=== PATIENT | male | born 1965 | race Caucasian/White ===

== ENCOUNTER 2017-04-20 19:07 | Inpatient (IN) | payer OTHER ==
[2017-04-20 21:43] VITALS: BMI 24.1
--- NOTE | 2017-04-20 22:18 | HP ---
COWS - Scale Resting Pulse: 0= ND 80 or Below Sweatin= Chills/Flushing Restless Observation: 5= Unable to Sit Still Pupil Size: 1= Pupils >than Normal Bone or Joint Aches: 4=Acute Joint/Muscle Pain Runny Nose/ Eye Tearin= None GI Upset > 30mins: 1= Stomach Cramp Tremor Observation: 2= Slight Tremor Visible Yawning Observation: 0= None Anxiety or Irritability: 2=Irritable/Anxious Goose Flesh Skin: 0=Smooth Skin COWS Score: 16 CIWA Score - CIWA Score Nausea/Vomitin-No Nausea/No Vomiting Muscle Tremors: 3 Anxiety: 3 Agitation: 4-Moderately Restless Paroxysmal Sweats: 3 Orientation: 0-Oriented Tacttile Disturbances: 0-None Auditory Disturbances: 0-None Visual Disturbances: 2-Mild Sensitivity Headache: 2-Mild CIWA-Ar Total Score: 17 Admission ROS S - HPI Chief Complaint: C/O WITHDRAWALS SX'S, OPIATE AND ALCOHOL DEPENDENCE SEEKING DETOX TXMENT. Allergies/Adverse Reactions: Allergies Allergy/AdvReac Type Severity Reaction Status Date / Time No Known Allergies Allergy Verified 10/14/15 16:43 History of Present Illness: 51 Y.O. MALE WITH ALCOHOLISM AND OPIATE DEPENDENCE ADMITTED FOR DETOX TXMENT. THIS IS CLIENTS FIRST TIME HERE. REPORTS NO RECENT DETOX/ REHAB. SELF REFERRED. REPORTS LONGEST CLEAN TIME 4 YEARS Exam Limitations: No Limitations - Ebola screening Have you traveled outside of the country in the last 21 days: No Have you had contact with anyone from an Ebola affected area: No Have you been sick,other than usual withdrawal symptoms: No Do you have a fever: No - Review of Systems Constitutional: Chills, Malaise, Night Sweats, Unintentional Wgt. Loss EENT: reports: Dental Problems (POOR DENTITION) Respiratory: reports: No Symptoms reported Cardiac: reports: No Symptoms Reported GI: reports: Abdominal cramping : reports: No Symptoms Reported Musculoskeletal: reports: Back Pain Integumentary: reports: No Symptoms Reported Neuro: reports: Headache, Tremors Endocrine: reports: Other (H/O DM) Hematology: reports: No Symptoms Reported Psychiatric: reports: Anxious, Depressed Other Systems: Reviewed and Negative Patient History - Patient Medical History Hx Anemia: No Hx Asthma: No Hx Chronic Obstructive Pulmonary Disease (COPD): No Hx Cancer: No Hx Cardiac Disorders: No Hx Congestive Heart Failure: No Hx Hypertension: No Hx Hypercholesterolemia: No Hx Pacemaker: No HX Cerebrovascular Accident: No Hx Seizures: No Hx Dementia: No Hx Diabetes: Yes (INSULIN) Hx Gastrointestinal Disorders: No Hx Liver Disease: No Hx Genitourinary Disorders: No Hx Sexually Transmitted Disorders: No Hx Renal Disease (ESRD): No Hx Thyroid Disease: No Hx Human Immunodeficiency Virus (HIV): No Hx Hepatitis C: No Hx Depression: No Hx Suicide Attempt: No Hx Bipolar Disorder: No Hx Schizophrenia: No Other Medical History: OA - Patient Surgical History Past Surgical History: No Hx Neurologic Surgery: No Hx Cataract Extraction: No Hx Cardiac Surgery: No Hx Lung Surgery: No Hx Breast Surgery: No Hx Breast Biopsy: No Hx Abdominal Surgery: No Hx Appendectomy: No Hx Cholecystectomy: No Hx Genitourinary Surgery: No Hx Section: No Hx Orthopedic Surgery: Yes (arthrotscopic sx on both knees) Anesthesia Reaction: No - PPD History Previous Implant?: Yes Documented Results: Negative w/o proof Implanted On Prior [facility] Admission?: No PPD to be Administered?: Yes - Smoking Cessation Smoking history: Current every day smoker Have you smoked in the past 12 months: Yes Aproximately how many cigarettes per day: 20 Cigars Per Day: 0 Hx Chewing Tobacco Use: No Initiated information on smoking cessation: Yes 'Breaking Loose' booklet given: 04/20/17 - Substance & Tx. History Hx Alcohol Use: Yes Hx Substance Use: Yes Substance Use Type: Alcohol, Heroin, Marijuana Hx Substance Use Treatment: No - Substances Abused HEROINE Route: Inhalation Frequency: Daily Amount used: 6 BAGS Age of first use: 48 Date of Last Use: 04/20/17 (3 BAGS) THC Route: Smoking Frequency: Daily Amount used: DIME Age of first use: 20 Date of Last Use: 04/19/17 BEER Route: Oral Frequency: Daily Amount used: 40 OZ Age of first use: 19 Date of Last Use: 04/19/17 Family Disease History - Family Disease History Family Disease History: Diabetes: Father Admission Physical Exam [facility] - Vital Signs Vital Signs: Vital Signs - 24 hr 04/20/17 21:40 Temperature 96.8 F L Pulse Rate 53 L Respiratory 18 Rate Blood Pressure 116/70 - Physical General Appearance: Yes: Appropriately Dressed, Tremorous, Anxious HEENTM: Yes: EOMI, Normocephalic, Pharynx Normal, Other (POOR DENTITION) Respiratory: Yes: Chest Non-Tender, No Respiratory Distress, No Accessory Muscle Use, Other (COARSE BREATH SOUNDS) Neck: Yes: No masses,lesions,Nodules, Supple, Trachea in good position Breast: Yes: Breast Exam Deferred Cardiology: Yes: Regular Rhythm, Regular Rate, S1, S2 Abdominal: Yes: Normal Bowel Sounds, Non Tender, Flat, Soft, Other (RESOLVING ECCHYMOSIS FROM INSULIN INJECTION NOTED TO ABD) Genitourinary: Yes: Within Normal Limits Back: Yes: Normal Inspection Musculoskeletal: Yes: full range of Motion, Gait Steady Extremities: Yes: Normal Capillary Refill, Normal Range of Motion, Non-Tender, Tremors Neurological: Yes: jumpbasting facing baster II-XII NML intact, Fully Oriented, Alert, Motor Strength 5/5 Integumentary: Yes: Normal Color, Dry, Warm Lymphatic: Yes: Within Normal Limits - Diagnostic (1) Alcohol dependence with uncomplicated withdrawal Current Visit: Yes Status: Chronic (2) Cannabis abuse Current Visit: Yes Status: Chronic (3) Nicotine abuse Current Visit: Yes Status: Chronic (4) Opioid dependence with withdrawal Current Visit: Yes Status: Chronic (5) Diabetes Current Visit: Yes Status: Chronic Qualifiers: Diabetes mellitus type: type 2 Cleared for Admission [facility] - Detox or Rehab [facility] Level of Care: Medically Managed Detox Regimen/Protocol: Methadone/Librium [facility] Breath Alcohol Content Breath Alcohol Content: 0 Urine Drug Screen - Results Drug Screen Negative: No Urine Drug Screen Results: THC-Marijuana, JOEL-Cocaine, OPI-Opiates
[2017-04-20] MEDS ORDERED: IBUPROFEN 400 MG TABLET (FP) PO PRN (22:35)
[2017-04-20] MEDS ORDERED: MAGNESIUM CITRATE 300 ML BOTTLE PO PRN (22:35)
[2017-04-20] MEDS ORDERED: MENTHOL/PHENOL 1 EACH UD MM PRN (22:35)
[2017-04-20] MEDS ORDERED: METHADONE HCL 10 MG TABLET (FOR DETOX USE ONLY) PO ONE ×2 (22:35→23:00)
[2017-04-20] MEDS ORDERED: ACETAMINOPHEN 325 MG TABLET (FP) PO PRN (22:35)
[2017-04-20] MEDS ORDERED: MAG HYDROX/AL HYDROX/SIMETH 30 ML UNIT-DOSE CUP PO PRN (22:35)
[2017-04-20] MEDS ORDERED: NICOTINE POLACRILEX 2 MG GUM BUC PRN (22:35)
[2017-04-20] MEDS ORDERED: guaiFENesin/D-METHORPHAN HB 10 ML UNIT-DOSE CUPS PO PRN (22:35)
[2017-04-20] MEDS ORDERED: P-EPHED 60MG/TRIPROLIDI 2.5MG TABLET PO PRN (22:35)
[2017-04-20] MEDS ORDERED: diphenhydrAMINE HCL 50 MG CAPSULE PO PRN (22:35)
[2017-04-20] MEDS ORDERED: LOPERAMIDE HCL 2 MG CAPSULE PO PRN (22:35)
[2017-04-20] MEDS ORDERED: MAGNESIUM HYDROX 2400MG/30ML ORAL SUSPENSION 30 ML CUP PO PRN (22:35)
[2017-04-20] MEDS ORDERED: chlordiazePOXIDE HCL 25 MG CAPSULE PO PRN (22:35)
[2017-04-20] MEDS: chlordiazePOXIDE HCL 25 MG CAPSULE PO SCH (23:51)
[2017-04-21 02:36] LABS: URINE APPEARANCE SLCLOUDY; URINE BILIRUBIN NEGATIVE (NEGATIVE); URINE COLOR AMBER; URINE GLUCOSE (UA) NEGATIVE (NEGATIVE); URINE KETONE TRACE (NEGATIVE); URINE LEUK ESTERASE NEGATIVE (NEGATIVE); URINE NITRITE NEGATIVE (NEGATIVE); URINE UROBILINOGEN NEGATIVE E.U./dl (0.2-1.0)
[2017-04-21 02:37] LABS: URINE BLOOD 1+ (NEGATIVE); URINE PROTEIN 1+ (NEGATIVE)
[2017-04-21 02:44] LABS: URINE HYALINE CAST 7 /lpf; URINE MUCUS MANY; URINE RBC 24 /hpf (0-3); URINE WBC 1 /hpf (3-5)
[2017-04-21] MEDS: chlordiazePOXIDE HCL 25 MG CAPSULE PO SCH (05:51)
[2017-04-21 06:38] VITALS: BP 108/68; PULSE 63; TEMP 97.7
--- NOTE | 2017-04-21 08:40 | DS ---
[facility] Detox Discharge Summary Admission Date: 04/20/17 Discharge Date: 04/21/17 - History Present History: Alcohol Dependence, Cannabis Dependence - Physical Exam Results Vital Signs: Vital Signs Temperature 97.7 F 04/21/17 06:00 Pulse Rate 63 04/21/17 06:00 Respiratory Rate 18 04/21/17 06:00 Blood Pressure 108/68 04/21/17 06:00 O2 Sat by Pulse Oximetry (%) - Treatment Hospital Course: Detox Protocol Followed - Medication Discharge Medications: Ambulatory Orders Insulin (Levemir) [Levemir Flexpen -] 6 units SQ BID 04/20/17 - Diagnosis (1) Alcohol dependence with uncomplicated withdrawal Current Visit: Yes Status: Chronic (2) Cannabis abuse Current Visit: Yes Status: Chronic (3) Diabetes Current Visit: Yes Status: Chronic Qualifiers: Diabetes mellitus type: type 2 (4) Nicotine abuse Current Visit: Yes Status: Chronic (5) Opioid dependence with withdrawal Current Visit: Yes Status: Chronic - AMA Did Patient Leave Against Medical Advice: Yes (pt wants to smoke so he's leaving [facility]. )
--- NOTE | 2017-04-21 09:38 | CONSULT ---
[facility] Psychiatric Consult - Data Date of interview: 04/21/17 Admission source: [facility] Identifying data: Thisis 51 years old male with no psychiatric hospitalizartion history intoxicated with: Alcohol Cannabis, Opioids and Nicotine Substance Abuse History: - Smoking Cessation. Smoking history: Current every day smoker. Have you smoked in the past 12 months: Yes. Aproximately how many cigarettes per day: 20. Cigars Per Day: 0. Hx Chewing Tobacco Use: No. Initiated information on smoking cessation: Yes. 'Breaking Loose' booklet given : 04/20/17. - Substance & Tx. History. Hx Alcohol Use: Yes. Hx Substance Use : Yes. Substance Use Type: Alcohol, Heroin, Marijuana. Hx Substance Use Treatment: No. - Substances Abused. HEROINE. Route: Inhalation. Frequency : Daily. Amount used: 6 BAGS. Age of first use: 48. Date of Last Use: (3 BAGS). THC. Route: Smoking. Frequency: Daily. Amount used: DIME. Age of first use: 20. Date of Last Use: 04/19/17. BEER. Route: Oral. Frequency: Daily. Amount used: 40 OZ. Age of first use: 19. Date of Last Use : 04/19/17 Medical History: DM Psychiatric History: Denies Physical/Sexual Abuse/Trauma History: Denies Additional Comment: Observation. Detox Unit Care Protocol Mental Status Exam - Mental Status Exam Alert and Oriented to: Person Cognitive Function: Fair Patient Appearance: Unkempt Mood: Sad Affect: Flat Patient Behavior: Sedated Speech Pattern: Delayed Voice Loudness: Mildly Soft/Quiet Thought Process: Circumstantial Thought Disorder: Being Controlled Hallucinations: Denies Suicidal Ideation: Denies Homicidal Ideation: Denies Insight/Judgement: Fair Sleep: Difficulty falling asleep Appetite: Weight gain Muscle strength/Tone: Mild Hypotonicity Gait/Station: Shuffling Additional Comments: Observation. Detox Unit Care Protocol Psychiatric Findings - Problem List ([place] 1, 2,3) (1) Alcohol dependence with uncomplicated withdrawal Current Visit: Yes Status: Chronic (2) Cannabis abuse Current Visit: Yes Status: Chronic (3) Opioid dependence with withdrawal Current Visit: Yes Status: Chronic (4) Drug-induced mood disorder Current Visit: No Status: Acute - Initial Treatment Plan Initial Treatment Plan: Observation. Detox Unit Care Protocol
[2017-04-21] MEDS ORDERED: METHADONE HCL 10 MG TABLET (FOR DETOX USE ONLY) PO SCH (10:00)
[2017-04-21] MEDS ORDERED: PRENATAL VITAMINS W/ FOLIC ACID TABLET (FP) PO SCH (10:00)
[2017-04-21] MEDS ORDERED: INSULIN DETEMIR 100 UNITS/ML MDV SQ SCH (10:00)
[2017-04-21] MEDS ORDERED: NICOTINE 14 MG/24 HOURS TOPICAL PATCH TD SCH (10:00)
[2017-04-21 10:24] LABS: MCH 32.2 pg (25.7-33.7); MCHC 34.5 g/dl (32.0-35.9); MEAN CELL VOLUME 93.4 fl (80-96); MEAN PLT VOLUME 8.2 fl (7.5-11.1); PLATELET COUNT 244 K/MM3 (134-434); RDW 14.3 % (11.9-15.9); WHITE BLOOD COUNT 7.9 K/mm3 (4.0-10.0)
[2017-04-21 11:00] LABS: ALBUMIN 3.1 g/dl (3.4-5.0); ALK PHOS 69 U/L (45-117); ANION GAP 4 (8-16); BILIRUBIN,TOTAL 0.2 mg/dL (0.2-1.0); CALCIUM 8.7 mg/dL (8.5-10.1); CO2 30 mmol/L (21-32); CREATININE 0.8 mg/dL (0.7-1.3); GLUCOSE,RANDOM 100 mg/dL (74-106); SGOT/AST 17 U/L (15-37); SGPT/ALT 20 U/L (12-78); TOT PROT 5.7 g/dl (6.4-8.2)
--- NOTE | 2017-04-21 15:49 | EKG ---
Test Reason : Blood Pressure : / mmHG Vent. Rate : 061 BPM Atrial Rate : 061 BPM P-R Int : 194 ms QRS Dur : 094 ms QT Int : 394 ms P-R-T Axes : 079 073 061 degrees QTc Int : 396 ms NORMAL SINUS RHYTHM NORMAL ECG NO PREVIOUS ECGS AVAILABLE Confirmed by MARQUISE BUCKLEY MD ([id number]) on 04/21/2017 3:49:01 PM Referred By: Confirmed By:MARQUISE BUCKLEY MD
[2017-04-21] MEDS ORDERED: THIAMINE HCL 100 MG TABLET (FP) PO SCH (22:00)
[2017-04-21] MEDS ORDERED: chlordiazePOXIDE HCL 25 MG CAPSULE PO SCH (23:00)
[2017-04-22] MEDS ORDERED: METHADONE HCL 5 MG TABLET (FOR DETOX USE ONLY) PO SCH (10:00)
[2017-04-22] MEDS ORDERED: chlordiazePOXIDE 5 MG CAPSULE PO SCH (23:00)
[2017-04-23] MEDS ORDERED: chlordiazePOXIDE HCL 10 MG CAPSULE PO SCH (23:00)
[2017-04-24] MEDS ORDERED: METHADONE HCL 10 MG TABLET (FOR DETOX USE ONLY) PO SCH (10:00)
[2017-04-25] MEDS ORDERED: METHADONE HCL 5 MG TABLET (FOR DETOX USE ONLY) PO SCH (06:00)
== END 2017-04-21 09:16 | disposition left against medical advice (07) | DRG 770 ==
LOC: YASAS 19:07 → Y6N 23:02
PROVIDERS: ADMIT Internal Medicine; ATTEND Internal Medicine
PROC: HZ2ZZZZ Detoxification Services for Substance Abuse Treatment (ICD-10-PCS; principal; 2017-04-20)
DX: F11.23 Opioid dependence with withdrawal (principal); F10.230 Alcohol dependence with withdrawal, uncomplicated; F12.10 Cannabis abuse, uncomplicated; F17.210 Nicotine dependence, cigarettes, uncomplicated; F19.24 Other psychoactive substance dependence with psychoactive substance-induced mood disorder; E11.9 Type 2 diabetes mellitus without complications; Z79.4 Long term (current) use of insulin
CPT/HCPCS: 36415; 80053; 81003; 81015; 85027; 86593; 93005; 93010

== ENCOUNTER 2020-10-07 15:48 | Inpatient (IN) | payer OTHER ==
[2020-10-07 16:48] VITALS: BMI 25.7
[2020-10-07] MEDS ORDERED: MAG HYDROX/AL HYDROX/SIMETH 30 ML UNIT-DOSE CUP PO PRN (18:46)
[2020-10-07] MEDS ORDERED: MENTHOL/PHENOL 1 EACH UD MM PRN (18:46)
[2020-10-07] MEDS ORDERED: ACETAMINOPHEN 325 MG TABLET (FP) PO PRN ×2 (18:46)
[2020-10-07] MEDS ORDERED: NICOTINE POLACRILEX 2 MG GUM BUC PRN (18:46)
[2020-10-07] MEDS ORDERED: MAGNESIUM CITRATE 300 ML BOTTLE PO PRN (18:46)
[2020-10-07] MEDS ORDERED: METHOCARBAMOL 500 MG TABLET PO PRN (18:46)
[2020-10-07] MEDS ORDERED: chlordiazePOXIDE HCL 25 MG CAPSULE PO PRN (18:46)
[2020-10-07] MEDS ORDERED: cloNIDine HCL 0.1 MG TABLET PO PRN (18:46)
[2020-10-07] MEDS ORDERED: MAGNESIUM HYDROX 2400MG/30ML ORAL SUSPENSION 30 ML CUP PO PRN (18:46)
[2020-10-07] MEDS ORDERED: IBUPROFEN 400 MG TABLET (FP) PO PRN (18:46)
[2020-10-07] MEDS ORDERED: ONDANSETRON *ODT* 4 MG TABLET SL PRN (18:46)
[2020-10-07] MEDS ORDERED: BISMUTH SUBSALICYLATE 524 MG/30 ML UD PO PRN (18:46)
[2020-10-07] MEDS ORDERED: NICOTINE 14 MG/24 HOURS TOPICAL PATCH TD SCH (21:00)
[2020-10-07] MEDS ORDERED: METHADONE HCL 10 MG TABLET (FOR DETOX USE ONLY) PO ONE (21:00)
[2020-10-07] MEDS ORDERED: MELATONIN 5 MG TABLETS PO SCH (22:00)
[2020-10-07] MEDS ORDERED: THIAMINE HCL 100 MG TABLET (FP) PO SCH (22:00)
[2020-10-07] MEDS: chlordiazePOXIDE HCL 25 MG CAPSULE PO SCH (22:27)
[2020-10-07] MEDS: hydrOXYzine PAMOATE 25 MG CAPSULE (FP) PO SCH (22:27)
[2020-10-08] MEDS: hydrOXYzine PAMOATE 25 MG CAPSULE (FP) PO SCH (05:05)
[2020-10-08] MEDS: chlordiazePOXIDE HCL 25 MG CAPSULE PO SCH (05:06)
[2020-10-08] MEDS ORDERED: METHADONE HCL 5 MG TABLET (FOR DETOX USE ONLY) ONE (09:04)
[2020-10-08] MEDS ORDERED: METHADONE HCL 10 MG TABLET (FOR DETOX USE ONLY) ONE (09:05)
[2020-10-08] MEDS ORDERED: hydrOXYzine PAMOATE 25 MG CAPSULE (FP) PO PRN (09:08)
[2020-10-08 09:48] VITALS: BP 109/69; PULSE 71; TEMP 97.9
[2020-10-08] MEDS ORDERED: PRENATAL VITAMINS W/ FOLIC ACID TABLET (FP) PO SCH (10:00)
[2020-10-08] MEDS ORDERED: METHADONE (DETOX) 20 MG, METHADONE (DETOX) 5 MG PO ONE (10:00)
[2020-10-08 13:06] LABS: HEMATOCRIT 45.3 % (35.4-49); HEMOGLOBIN 14.7 GM/dL (11.7-16.9); MCHC 32.5 g/dl (32.0-35.9); MEAN CELL VOLUME 98.3 fl (80-96); MEAN PLT VOLUME 8.4 fl (7.5-11.1); PLATELET COUNT 288 K/MM3 (134-434); RBC 4.61 M/mm3 (4.00-5.60); RDW 15.1 % (11.9-15.9)
[2020-10-08 13:08] LABS: POTASSIUM 4.2 mmol/L (3.5-5.1)
[2020-10-08 13:13] LABS: ALBUMIN 3.8 g/dl (3.4-5.0); CALCIUM 9.6 mg/dL (8.5-10.1)
[2020-10-08 13:15] LABS: BLOOD UREA NITROGEN 10.9 mg/dL (7-18)
[2020-10-08 13:16] LABS: CREATININE 0.8 mg/dL (0.55-1.3)
[2020-10-08 13:19] LABS: BILIRUBIN,TOTAL 0.8 mg/dL (0.2-1); TOT PROT 7.3 g/dl (6.4-8.2)
[2020-10-09] MEDS ORDERED: chlordiazePOXIDE HCL 25 MG CAPSULE PO SCH (05:00)
[2020-10-09] MEDS ORDERED: METHADONE HCL 10 MG TABLET (FOR DETOX USE ONLY) PO ONE (10:00)
[2020-10-10] MEDS ORDERED: chlordiazePOXIDE HCL 10 MG CAPSULE PO PRN
[2020-10-10] MEDS ORDERED: chlordiazePOXIDE HCL 10 MG CAPSULE PO SCH (05:00)
[2020-10-10] MEDS ORDERED: METHADONE (DETOX) 10 MG, METHADONE (DETOX) 5 MG PO ONE (10:00)
[2020-10-11] MEDS ORDERED: chlordiazePOXIDE HCL 10 MG CAPSULE PO SCH (05:00)
[2020-10-11] MEDS ORDERED: METHADONE HCL 10 MG TABLET (FOR DETOX USE ONLY) PO ONE (10:00)
[2020-10-12] MEDS ORDERED: chlordiazePOXIDE HCL 10 MG CAPSULE PO ONE (05:00)
[2020-10-12] MEDS ORDERED: METHADONE HCL 5 MG TABLET (FOR DETOX USE ONLY) PO ONE (06:00)
== END 2020-10-08 10:25 | disposition left against medical advice (07) | DRG 770 ==
LOC: YASAS 15:48 → Y6N 20:23
PROVIDERS: ADMIT Allergy & Immunology; ATTEND Allergy & Immunology
PROC: HZ2ZZZZ Detoxification Services for Substance Abuse Treatment (ICD-10-PCS; principal; 2020-10-07)
DX: F11.23 Opioid dependence with withdrawal (principal); F10.230 Alcohol dependence with withdrawal, uncomplicated; F12.10 Cannabis abuse, uncomplicated; F17.210 Nicotine dependence, cigarettes, uncomplicated; M17.11 Unilateral primary osteoarthritis, right knee; Z59.0 Homelessness
CPT/HCPCS: 36415; 80053; 85027; 86780; C9803; J0735; U0003

== ENCOUNTER 2020-10-21 05:21 | Inpatient (IN) | payer OTHER ==
[2020-10-21 05:43] VITALS: BMI 25.8
[2020-10-21] MEDS ORDERED: MENTHOL/PHENOL 1 EACH UD MM PRN (10:19)
[2020-10-21] MEDS ORDERED: METHADONE HCL 10 MG TABLET (FOR DETOX USE ONLY) PO ONE (10:19)
[2020-10-21] MEDS ORDERED: BISMUTH SUBSALICYLATE 262 MG/15 ML BTL PO PRN (10:19)
[2020-10-21] MEDS ORDERED: ACETAMINOPHEN 325 MG TABLET (FP) PO PRN ×2 (10:19)
[2020-10-21] MEDS ORDERED: chlordiazePOXIDE HCL 25 MG CAPSULE PO PRN (10:19)
[2020-10-21] MEDS ORDERED: MAGNESIUM CITRATE 300 ML BOTTLE PO PRN (10:19)
[2020-10-21] MEDS ORDERED: ONDANSETRON *ODT* 4 MG TABLET SL PRN (10:19)
[2020-10-21] MEDS ORDERED: MAGNESIUM HYDROX 2400MG/30ML ORAL SUSPENSION 30 ML CUP PO PRN (10:19)
[2020-10-21] MEDS ORDERED: IBUPROFEN 400 MG TABLET (FP) PO PRN (10:19)
[2020-10-21] MEDS ORDERED: NICOTINE POLACRILEX 2 MG GUM BUC PRN (10:19)
[2020-10-21] MEDS ORDERED: MAG HYDROX/AL HYDROX/SIMETH 30 ML UNIT-DOSE CUP PO PRN (10:19)
[2020-10-21] MEDS: chlordiazePOXIDE HCL 25 MG CAPSULE PO SCH ×3 (11:08→22:21)
[2020-10-21] MEDS ORDERED: METHADONE HCL 10 MG TABLET (FOR DETOX USE ONLY) ONE (11:09)
[2020-10-21] MEDS ORDERED: chlordiazePOXIDE HCL 25 MG CAPSULE ONE (11:09)
[2020-10-21] MEDS: cloNIDine HCL 0.1 MG TABLET PO PRN ×2 (13:10→18:23)
[2020-10-21] MEDS: METHOCARBAMOL 500 MG TABLET PO PRN (13:11)
[2020-10-21] MEDS: NICOTINE 14 MG/24 HOURS TOPICAL PATCH TD SCH (13:21)
[2020-10-21] MEDS: PRENATAL VITAMINS W/ FOLIC ACID TABLET (FP) PO SCH (13:22)
[2020-10-21] MEDS: hydrOXYzine PAMOATE 25 MG CAPSULE (FP) PO SCH ×3 (13:29→22:21)
[2020-10-21 15:04] LABS: HEMATOCRIT 41.9 % (35.4-49); HEMOGLOBIN 13.8 GM/dL (11.7-16.9); MCH 31.9 pg (25.7-33.7); MCHC 32.9 g/dl (32.0-35.9); MEAN CELL VOLUME 97.1 fl (80-96); MEAN PLT VOLUME 8.4 fl (7.5-11.1); PLATELET COUNT 345 K/MM3 (134-434); RBC 4.31 M/mm3 (4.00-5.60); RDW 14.6 % (11.9-15.9); WHITE BLOOD COUNT 7.1 K/mm3 (4.0-10.0)
[2020-10-21 15:09] LABS: POTASSIUM 4.2 mmol/L (3.5-5.1)
[2020-10-21 15:12] LABS: ALBUMIN 3.6 g/dl (3.4-5.0); CALCIUM 9.5 mg/dL (8.5-10.1)
[2020-10-21 15:15] LABS: CREATININE 0.9 mg/dL (0.55-1.3)
[2020-10-21 15:17] LABS: BILIRUBIN,TOTAL 1.1 mg/dL (0.2-1); TOT PROT 6.8 g/dl (6.4-8.2)
[2020-10-21] MEDS ORDERED: MELATONIN 5 MG TABLETS PO SCH (22:00)
[2020-10-21] MEDS ORDERED: THIAMINE HCL 100 MG TABLET (FP) PO SCH (22:00)
[2020-10-22] MEDS: METHOCARBAMOL 500 MG TABLET PO PRN (00:41)
[2020-10-22] MEDS: chlordiazePOXIDE HCL 25 MG CAPSULE PO SCH ×2 (05:27→10:09)
[2020-10-22] MEDS: hydrOXYzine PAMOATE 25 MG CAPSULE (FP) PO SCH ×3 (05:27→13:04)
[2020-10-22] MEDS ORDERED: METHADONE HCL 10 MG TABLET (FOR DETOX USE ONLY) ONE (08:52)
[2020-10-22] MEDS ORDERED: METHADONE HCL 5 MG TABLET (FOR DETOX USE ONLY) ONE (08:52)
[2020-10-22] MEDS ORDERED: METHADONE (DETOX) 20 MG, METHADONE (DETOX) 5 MG PO ONE (10:00)
[2020-10-22] MEDS: PRENATAL VITAMINS W/ FOLIC ACID TABLET (FP) PO SCH (10:10)
[2020-10-22] MEDS: NICOTINE 14 MG/24 HOURS TOPICAL PATCH TD SCH (10:12)
[2020-10-22] MEDS: cloNIDine HCL 0.1 MG TABLET PO PRN (12:27)
[2020-10-22 13:38] VITALS: BP 119/77; PULSE 94; TEMP 97.8
[2020-10-23] MEDS ORDERED: chlordiazePOXIDE HCL 25 MG CAPSULE PO SCH (05:00)
[2020-10-23] MEDS ORDERED: METHADONE HCL 10 MG TABLET (FOR DETOX USE ONLY) PO ONE (10:00)
[2020-10-24] MEDS ORDERED: chlordiazePOXIDE HCL 10 MG CAPSULE PO PRN
[2020-10-24] MEDS ORDERED: chlordiazePOXIDE HCL 10 MG CAPSULE PO SCH (05:00)
[2020-10-24] MEDS ORDERED: METHADONE (DETOX) 10 MG, METHADONE (DETOX) 5 MG PO ONE (10:00)
[2020-10-25] MEDS ORDERED: chlordiazePOXIDE HCL 10 MG CAPSULE PO SCH (05:00)
[2020-10-25] MEDS ORDERED: METHADONE HCL 10 MG TABLET (FOR DETOX USE ONLY) PO ONE (10:00)
[2020-10-26] MEDS ORDERED: chlordiazePOXIDE HCL 10 MG CAPSULE PO ONE (05:00)
[2020-10-26] MEDS ORDERED: METHADONE HCL 5 MG TABLET (FOR DETOX USE ONLY) PO ONE (06:00)
== END 2020-10-22 16:16 | disposition left against medical advice (07) | DRG 770 ==
LOC: YASAS 05:21 → Y6N 12:23
PROVIDERS: ADMIT Allergy & Immunology; ATTEND Allergy & Immunology
PROC: HZ2ZZZZ Detoxification Services for Substance Abuse Treatment (ICD-10-PCS; principal; 2020-10-21)
DX: F11.23 Opioid dependence with withdrawal (principal); F10.230 Alcohol dependence with withdrawal, uncomplicated; F12.10 Cannabis abuse, uncomplicated; F17.210 Nicotine dependence, cigarettes, uncomplicated; F19.24 Other psychoactive substance dependence with psychoactive substance-induced mood disorder; E11.9 Type 2 diabetes mellitus without complications; M17.11 Unilateral primary osteoarthritis, right knee
CPT/HCPCS: 36415; 80053; 85027; 86780; 93005; 93010; C9803; J0735; U0003

== ENCOUNTER 2020-12-15 02:21 | Emergency (ER) | payer OTHER ==
[2020-12-15 02:48] VITALS: BP 110/86; PULSE 75; TEMP 98.3; BMI 25.0
== END 2020-12-15 04:58 | disposition left against medical advice (07) ==
LOC: JER 02:21
DX: F19.20 Other psychoactive substance dependence, uncomplicated (principal)
CPT/HCPCS: 99281-25

== ENCOUNTER 2021-09-10 11:46 | Inpatient (IN) | payer OTHER ==
[2021-09-10 11:55] VITALS: BMI 23.5
[2021-09-10] MEDS ORDERED: methaDONE HCL 10 MG TABLET (FOR DETOX USE ONLY) PO ONE (12:31)
[2021-09-10] MEDS ORDERED: ONDANSETRON *ODT* 4 MG TABLET SL PRN (12:31)
[2021-09-10] MEDS ORDERED: BISMUTH SUBSALICYLATE 524 MG/30 ML PO PRN (12:31)
[2021-09-10] MEDS ORDERED: MAGNESIUM HYDROX 2400MG/30ML ORAL SUSPENSION 30 ML CUP PO PRN (12:31)
[2021-09-10] MEDS ORDERED: MAG HYDROX/AL HYDROX/SIMETH 30 ML UNIT-DOSE CUP PO PRN (12:31)
[2021-09-10] MEDS ORDERED: NICOTINE 10 MG CARTRIDGE (INHALER) IH PRN (12:31)
[2021-09-10] MEDS ORDERED: IBUPROFEN 400 MG TABLET (FP) PO PRN (12:31)
[2021-09-10] MEDS ORDERED: ACETAMINOPHEN 325 MG TABLET (FP) PO PRN ×2 (12:31)
[2021-09-10] MEDS ORDERED: MAGNESIUM CITRATE 300 ML BOTTLE PO PRN (12:31)
[2021-09-10] MEDS ORDERED: cloNIDine HCL 0.1 MG TABLET PO PRN (12:31)
[2021-09-10] MEDS ORDERED: MENTHOL/PHENOL 1 EACH UD MM PRN (12:31)
[2021-09-10] MEDS ORDERED: METHOCARBAMOL 500 MG TABLET PO PRN (12:31)
[2021-09-10] MEDS ORDERED: ALBUTEROL SO4 HFA INHALER IH PRN (12:48)
[2021-09-10] MEDS: hydrOXYzine PAMOATE 25 MG CAPSULE (FP) PO SCH ×3 (13:39→22:06)
[2021-09-10 17:38] LABS: HEMATOCRIT 38.8 % (35.4-49); HEMOGLOBIN 13.2 GM/dL (11.7-16.9); MCH 32.2 pg (25.7-33.7); MCHC 33.9 g/dl (32.0-35.9); MEAN CELL VOLUME 94.9 fl (80-96); MEAN PLT VOLUME 8.1 fl (7.5-11.1); PLATELET COUNT 290 10^3/uL (134-434); RBC 4.09 M/mm3 (4.00-5.60); RDW 14.5 % (11.9-15.9); WHITE BLOOD COUNT 9.3 K/mm3 (4.0-10.0)
[2021-09-10 17:43] LABS: CALCIUM 9.7 mg/dL (8.5-10.1)
[2021-09-10 17:48] LABS: BILIRUBIN,TOTAL 0.4 mg/dL (0.2-1)
[2021-09-10 18:39] LABS: HIV INTERPRETATION NEGATIVE (NEGATIVE)
[2021-09-10] MEDS ORDERED: MELATONIN 5 MG TABLETS PO SCH (22:00)
[2021-09-10] MEDS ORDERED: THIAMINE HCL 100 MG TABLET (FP) PO SCH (22:00)
[2021-09-10] MEDS: BUDESONIDE/FORMETEROL FUMARATE 80/4.5 mcg INHALER IH SCH (22:05)
[2021-09-11] MEDS: hydrOXYzine PAMOATE 25 MG CAPSULE (FP) PO SCH ×2 (05:41→10:22)
[2021-09-11 09:13] VITALS: BP 140/75; PULSE 63; TEMP 98.7
[2021-09-11] MEDS ORDERED: methaDONE HCL 10 MG TABLET (FOR DETOX USE ONLY) ONE (09:31)
[2021-09-11] MEDS ORDERED: PRENATAL VITAMINS W/ FOLIC ACID TABLET (FP) PO SCH (10:00)
[2021-09-11] MEDS: BUDESONIDE/FORMETEROL FUMARATE 80/4.5 mcg INHALER IH SCH (10:22)
[2021-09-12] MEDS ORDERED: methaDONE HCL 10 MG TABLET (FOR DETOX USE ONLY) PO ONE (10:00)
[2021-09-14] MEDS ORDERED: methaDONE HCL 10 MG TABLET (FOR DETOX USE ONLY) PO ONE (10:00)
== END 2021-09-11 12:25 | disposition left against medical advice (07) | DRG 770 ==
LOC: YASAS 11:46 → Y6N 12:11
PROVIDERS: ADMIT Allergy & Immunology; ATTEND Allergy & Immunology
PROC: HZ2ZZZZ Detoxification Services for Substance Abuse Treatment (ICD-10-PCS; principal; 2021-09-10)
DX: F11.23 Opioid dependence with withdrawal (principal); F10.230 Alcohol dependence with withdrawal, uncomplicated; F14.20 Cocaine dependence, uncomplicated; F12.20 Cannabis dependence, uncomplicated; F17.210 Nicotine dependence, cigarettes, uncomplicated; F19.24 Other psychoactive substance dependence with psychoactive substance-induced mood disorder; F32.A Depression, unspecified; F41.9 Anxiety disorder, unspecified; J45.909 Unspecified asthma, uncomplicated; E11.9 Type 2 diabetes mellitus without complications; Z79.4 Long term (current) use of insulin; Z96.651 Presence of right artificial knee joint; Z99.89 Dependence on other enabling machines and devices
CPT/HCPCS: 36415; 80053; 85027; 86780; 87389; C9803; U0003; U0005

== ENCOUNTER 2022-12-17 13:42 | Inpatient (IN) | payer OTHER ==
[2022-12-17 14:33] VITALS: BMI 21.9
[2022-12-17] MEDS ORDERED: MAGNESIUM HYDROX 2400MG/30ML ORAL SUSPENSION 30 ML CUP PO PRN (17:40)
[2022-12-17] MEDS ORDERED: LOPERAMIDE HCL 2 MG CAPSULE PO PRN (17:40)
[2022-12-17] MEDS ORDERED: MELATONIN 5 MG TABLETS PO PRN (17:40)
[2022-12-17] MEDS ORDERED: P-EPHED 60MG/TRIPROLIDI 2.5MG TABLET PO PRN (17:40)
[2022-12-17] MEDS ORDERED: guaiFENesin 200 MG/10 ML 10 ML UNIT-DOSE CUPS PO PRN (17:40)
[2022-12-17] MEDS ORDERED: POLYETHYLENE GLYCOL (HEALTHYLAX) 3350 17 GM PACKET PO PRN (17:40)
[2022-12-17] MEDS ORDERED: NICOTINE 10 MG CARTRIDGE (INHALER) IH PRN (17:40)
[2022-12-17] MEDS ORDERED: BENZOCAINE/MENTHOL (CHLORASEPTIC ) LOZENGE MM PRN (17:40)
[2022-12-17] MEDS ORDERED: MAG HYDROX/AL HYDROX/SIMETH 30 ML UNIT-DOSE CUP PO PRN (17:40)
[2022-12-17] MEDS ORDERED: ACETAMINOPHEN 325 MG TABLET (FP) PO PRN (17:40)
[2022-12-17] MEDS ORDERED: NICOTINE POLACRILEX 2 MG GUM BC PRN (17:40)
[2022-12-17] MEDS: ALBUTEROL SO4 HFA INHALER IH PRN (19:55)
[2022-12-17] MEDS: THIAMINE HCL 100 MG TABLET (FP) PO SCH (21:25)
[2022-12-17] MEDS: NAPROXEN 500 MG TABLET PO PRN (21:26)
[2022-12-18] MEDS: methaDONE HCL 40 MG DISPERSABLE TABLET PO SCH (07:41)
[2022-12-18] MEDS: PRENATAL VITAMINS W/ FOLIC ACID TABLET (FP) PO SCH (10:20)
[2022-12-18] MEDS: NAPROXEN 500 MG TABLET PO PRN ×2 (10:21→21:14)
[2022-12-18 10:42] LABS: HEMATOCRIT 37.6 % (35.4-49); MCH 32.8 pg (25.7-33.7); MCHC 34.6 g/dl (32.0-35.9); MEAN CELL VOLUME 94.7 fl (80-96); MEAN PLT VOLUME 7.9 fl (7.5-11.1); PLATELET COUNT 313 10^3/uL (134-434); RBC 3.97 M/mm3 (4.00-5.60); RDW 13.9 % (11.9-15.9); WHITE BLOOD COUNT 6.3 K/mm3 (4.0-10.0)
[2022-12-18 11:04] LABS: ALBUMIN 3.3 g/dl (3.4-5.0); BLOOD UREA NITROGEN 17.2 mg/dL (7-18); CALCIUM 8.9 mg/dL (8.5-10.1)
[2022-12-18 11:07] LABS: CREATININE 0.8 mg/dL (0.55-1.3)
[2022-12-18 11:09] LABS: BILIRUBIN,TOTAL 0.3 mg/dL (0.2-1); TOT PROT 6.1 g/dl (6.4-8.2)
[2022-12-18] MEDS: THIAMINE HCL 100 MG TABLET (FP) PO SCH (21:14)
[2022-12-18] MEDS: SUVOREXANT 10 MG TABLET PO PRN (21:15)
[2022-12-18 22:01] LABS: PH,URINE 5.5 (5.0-8.0); URINE APPEARANCE CLEAR; URINE BILIRUBIN NEGATIVE (NEGATIVE); URINE COLOR YELLOW; URINE GLUCOSE (UA) NEGATIVE (NEGATIVE); URINE KETONE TRACE (NEGATIVE); URINE LEUK ESTERASE NEGATIVE (NEGATIVE); URINE NITRITE NEGATIVE (NEGATIVE); URINE PROTEIN NEGATIVE (NEGATIVE); URINE UROBILINOGEN 0.2 mg/dL (0.2-1.0)
[2022-12-19] MEDS: methaDONE HCL 40 MG DISPERSABLE TABLET PO SCH (06:16)
[2022-12-19] MEDS: NAPROXEN 500 MG TABLET PO PRN ×2 (06:18→21:24)
[2022-12-19] MEDS: PRENATAL VITAMINS W/ FOLIC ACID TABLET (FP) PO SCH (10:07)
[2022-12-19] MEDS: THIAMINE HCL 100 MG TABLET (FP) PO SCH (21:24)
[2022-12-19] MEDS: SUVOREXANT 10 MG TABLET PO PRN (21:24)
[2022-12-20] MEDS: methaDONE HCL 40 MG DISPERSABLE TABLET PO SCH (06:14)
[2022-12-20] MEDS: PRENATAL VITAMINS W/ FOLIC ACID TABLET (FP) PO SCH (09:37)
[2022-12-20] MEDS: THIAMINE HCL 100 MG TABLET (FP) PO SCH (21:19)
[2022-12-20] MEDS: NAPROXEN 500 MG TABLET PO PRN (21:19)
[2022-12-20] MEDS: SUVOREXANT 10 MG TABLET PO PRN (21:20)
[2022-12-21] MEDS: methaDONE HCL 40 MG DISPERSABLE TABLET PO SCH (06:11)
[2022-12-21] MEDS: ALBUTEROL SO4 HFA INHALER IH PRN ×2 (09:52→21:14)
[2022-12-21] MEDS: PRENATAL VITAMINS W/ FOLIC ACID TABLET (FP) PO SCH (09:52)
[2022-12-21] MEDS: NIC7 TD SCH (14:39)
[2022-12-21] MEDS: THIAMINE HCL 100 MG TABLET (FP) PO SCH (21:14)
[2022-12-21] MEDS: NAPROXEN 500 MG TABLET PO PRN (21:16)
[2022-12-21] MEDS ORDERED: SUVOREXANT 20 MG TABLET PO PRN (22:00)
[2022-12-22] MEDS: methaDONE HCL 40 MG DISPERSABLE TABLET PO SCH (06:09)
[2022-12-22] MEDS: PRENATAL VITAMINS W/ FOLIC ACID TABLET (FP) PO SCH (10:13)
[2022-12-22] MEDS: NIC7 TD SCH (10:13)
[2022-12-22] MEDS: THIAMINE HCL 100 MG TABLET (FP) PO SCH (21:16)
[2022-12-22] MEDS: NAPROXEN 500 MG TABLET PO PRN (21:16)
[2022-12-22] MEDS: SUVOREXANT 10 MG TABLET PO PRN (21:17)
[2022-12-23] MEDS: methaDONE HCL 40 MG DISPERSABLE TABLET PO SCH (06:16)
[2022-12-23] MEDS: NAPROXEN 500 MG TABLET PO PRN ×2 (06:17→21:21)
[2022-12-23] MEDS: NIC7 TD SCH (10:21)
[2022-12-23] MEDS: PRENATAL VITAMINS W/ FOLIC ACID TABLET (FP) PO SCH (10:21)
[2022-12-23] MEDS: ALBUTEROL SO4 HFA INHALER IH PRN (10:22)
[2022-12-23] MEDS: THIAMINE HCL 100 MG TABLET (FP) PO SCH (21:21)
[2022-12-23] MEDS: SUVOREXANT 10 MG TABLET PO PRN (21:22)
[2022-12-24] MEDS: NAPROXEN 500 MG TABLET PO PRN ×2 (06:15→21:07)
[2022-12-24] MEDS: methaDONE HCL 40 MG DISPERSABLE TABLET PO SCH (06:16)
[2022-12-24] MEDS: NIC7 TD SCH (10:14)
[2022-12-24] MEDS: PRENATAL VITAMINS W/ FOLIC ACID TABLET (FP) PO SCH (10:14)
[2022-12-24] MEDS: THIAMINE HCL 100 MG TABLET (FP) PO SCH (21:07)
[2022-12-24] MEDS ORDERED: SUVOREXANT 10 MG TABLET PO PRN (22:00)
[2022-12-25] MEDS: methaDONE HCL 40 MG DISPERSABLE TABLET PO SCH (06:07)
[2022-12-25] MEDS: NAPROXEN 500 MG TABLET PO PRN ×2 (06:07→21:28)
[2022-12-25] MEDS: ALBUTEROL SO4 HFA INHALER IH PRN (06:08)
[2022-12-25] MEDS: hydrOXYzine PAMOATE 25 MG CAPSULE (FP) PO PRN ×2 (10:05→21:28)
[2022-12-25] MEDS: PRENATAL VITAMINS W/ FOLIC ACID TABLET (FP) PO SCH (10:05)
[2022-12-25] MEDS: NIC7 TD SCH (10:05)
[2022-12-25] MEDS: THIAMINE HCL 100 MG TABLET (FP) PO SCH (21:26)
[2022-12-25] MEDS ORDERED: SUVOREXANT 10 MG TABLET PO PRN (22:00)
[2022-12-25] MEDS: SUVOREXANT 5 MG TABLET PO PRN (22:17)
[2022-12-26] MEDS: hydrOXYzine PAMOATE 25 MG CAPSULE (FP) PO PRN ×2 (06:19→21:28)
[2022-12-26] MEDS: methaDONE HCL 40 MG DISPERSABLE TABLET PO SCH (06:19)
[2022-12-26] MEDS: NAPROXEN 500 MG TABLET PO PRN ×2 (06:19→21:28)
[2022-12-26] MEDS: ALBUTEROL SO4 HFA INHALER IH PRN (10:33)
[2022-12-26] MEDS: PRENATAL VITAMINS W/ FOLIC ACID TABLET (FP) PO SCH (10:34)
[2022-12-26] MEDS: NIC7 TD SCH (10:34)
[2022-12-26] MEDS: SUVOREXANT 5 MG TABLET PO PRN (21:27)
[2022-12-26] MEDS: THIAMINE HCL 100 MG TABLET (FP) PO SCH (21:27)
[2022-12-27] MEDS: NAPROXEN 500 MG TABLET PO PRN ×2 (05:56→21:13)
[2022-12-27] MEDS: hydrOXYzine PAMOATE 25 MG CAPSULE (FP) PO PRN ×2 (05:56→21:13)
[2022-12-27] MEDS: methaDONE HCL 40 MG DISPERSABLE TABLET PO SCH (05:56)
[2022-12-27] MEDS: NIC7 TD SCH (09:56)
[2022-12-27] MEDS: PRENATAL VITAMINS W/ FOLIC ACID TABLET (FP) PO SCH (09:56)
[2022-12-27] MEDS: SUVOREXANT 5 MG TABLET PO PRN (21:13)
[2022-12-27] MEDS: THIAMINE HCL 100 MG TABLET (FP) PO SCH (21:13)
[2022-12-28] MEDS: hydrOXYzine PAMOATE 25 MG CAPSULE (FP) PO PRN ×2 (06:43→21:25)
[2022-12-28] MEDS: NAPROXEN 500 MG TABLET PO PRN ×2 (06:44→21:23)
[2022-12-28] MEDS: methaDONE HCL 40 MG DISPERSABLE TABLET PO SCH (06:44)
[2022-12-28] MEDS: NIC7 TD SCH (10:22)
[2022-12-28] MEDS: ALBUTEROL SO4 HFA INHALER IH PRN ×2 (10:22→21:25)
[2022-12-28] MEDS: PRENATAL VITAMINS W/ FOLIC ACID TABLET (FP) PO SCH (10:22)
[2022-12-28] MEDS: THIAMINE HCL 100 MG TABLET (FP) PO SCH (21:23)
[2022-12-28] MEDS: SUVOREXANT 15 MG TABLET PO PRN (21:23)
[2022-12-29] MEDS: methaDONE HCL 40 MG DISPERSABLE TABLET PO SCH (05:59)
[2022-12-29] MEDS: NAPROXEN 500 MG TABLET PO PRN ×2 (06:00→21:10)
[2022-12-29] MEDS: hydrOXYzine PAMOATE 25 MG CAPSULE (FP) PO PRN ×2 (06:00→21:10)
[2022-12-29] MEDS: NIC7 TD SCH (10:09)
[2022-12-29] MEDS: PRENATAL VITAMINS W/ FOLIC ACID TABLET (FP) PO SCH (10:09)
[2022-12-29] MEDS: ALBUTEROL SO4 HFA INHALER IH PRN (10:09)
[2022-12-29] MEDS: THIAMINE HCL 100 MG TABLET (FP) PO SCH (21:09)
[2022-12-29] MEDS: SUVOREXANT 15 MG TABLET PO PRN (21:10)
[2022-12-30] MEDS: methaDONE HCL 40 MG DISPERSABLE TABLET PO SCH (06:39)
[2022-12-30] MEDS: NAPROXEN 500 MG TABLET PO PRN ×2 (06:40→21:14)
[2022-12-30] MEDS: hydrOXYzine PAMOATE 25 MG CAPSULE (FP) PO PRN ×2 (06:40→21:15)
[2022-12-30] MEDS: NIC7 TD SCH (10:03)
[2022-12-30] MEDS: ALBUTEROL SO4 HFA INHALER IH PRN (10:04)
[2022-12-30] MEDS: PRENATAL VITAMINS W/ FOLIC ACID TABLET (FP) PO SCH (10:04)
[2022-12-30] MEDS: SUVOREXANT 15 MG TABLET PO PRN (21:14)
[2022-12-30] MEDS: THIAMINE HCL 100 MG TABLET (FP) PO SCH (21:14)
[2022-12-31] MEDS: NAPROXEN 500 MG TABLET PO PRN ×2 (06:31→21:35)
[2022-12-31] MEDS: hydrOXYzine PAMOATE 25 MG CAPSULE (FP) PO PRN ×2 (06:31→21:34)
[2022-12-31] MEDS: methaDONE HCL 40 MG DISPERSABLE TABLET PO SCH (06:31)
[2022-12-31] MEDS: PRENATAL VITAMINS W/ FOLIC ACID TABLET (FP) PO SCH (09:59)
[2022-12-31] MEDS: NIC7 TD SCH (10:00)
[2022-12-31] MEDS: ALBUTEROL SO4 HFA INHALER IH PRN (10:01)
[2022-12-31] MEDS: SUVOREXANT 15 MG TABLET PO PRN (21:34)
[2022-12-31] MEDS: THIAMINE HCL 100 MG TABLET (FP) PO SCH (21:35)
[2023-01-01] MEDS: methaDONE HCL 40 MG DISPERSABLE TABLET PO SCH (05:54)
[2023-01-01] MEDS: hydrOXYzine PAMOATE 25 MG CAPSULE (FP) PO PRN ×2 (05:54→21:15)
[2023-01-01] MEDS: NAPROXEN 500 MG TABLET PO PRN ×2 (05:54→21:14)
[2023-01-01] MEDS: PRENATAL VITAMINS W/ FOLIC ACID TABLET (FP) PO SCH (10:38)
[2023-01-01] MEDS: NIC7 TD SCH (10:39)
[2023-01-01] MEDS: ALBUTEROL SO4 HFA INHALER IH PRN (10:40)
[2023-01-01] MEDS: THIAMINE HCL 100 MG TABLET (FP) PO SCH (21:14)
[2023-01-01] MEDS: SUVOREXANT 15 MG TABLET PO PRN (21:15)
[2023-01-02] MEDS: hydrOXYzine PAMOATE 25 MG CAPSULE (FP) PO PRN ×2 (06:19→21:31)
[2023-01-02] MEDS: NAPROXEN 500 MG TABLET PO PRN ×2 (06:19→21:31)
[2023-01-02] MEDS: methaDONE HCL 40 MG DISPERSABLE TABLET PO SCH (06:19)
[2023-01-02] MEDS: ALBUTEROL SO4 HFA INHALER IH PRN (06:19)
[2023-01-02] MEDS: PRENATAL VITAMINS W/ FOLIC ACID TABLET (FP) PO SCH (10:38)
[2023-01-02] MEDS: NIC7 TD SCH (10:39)
[2023-01-02] MEDS: SUVOREXANT 15 MG TABLET PO PRN (21:31)
[2023-01-02] MEDS: THIAMINE HCL 100 MG TABLET (FP) PO SCH (21:31)
[2023-01-03] MEDS: methaDONE HCL 40 MG DISPERSABLE TABLET PO SCH (06:07)
[2023-01-03] MEDS: NAPROXEN 500 MG TABLET PO PRN ×2 (06:08→21:21)
[2023-01-03] MEDS: hydrOXYzine PAMOATE 25 MG CAPSULE (FP) PO PRN ×2 (06:08→21:21)
[2023-01-03] MEDS: PRENATAL VITAMINS W/ FOLIC ACID TABLET (FP) PO SCH (10:38)
[2023-01-03] MEDS: NIC7 TD SCH (10:39)
[2023-01-03] MEDS: THIAMINE HCL 100 MG TABLET (FP) PO SCH (21:21)
[2023-01-03] MEDS: SUVOREXANT 15 MG TABLET PO PRN (21:21)
[2023-01-04] MEDS: methaDONE HCL 40 MG DISPERSABLE TABLET PO SCH (06:34)
[2023-01-04] MEDS: hydrOXYzine PAMOATE 25 MG CAPSULE (FP) PO PRN ×2 (06:35→21:23)
[2023-01-04] MEDS: NAPROXEN 500 MG TABLET PO PRN ×2 (06:35→21:22)
[2023-01-04] MEDS: NIC7 TD SCH (09:50)
[2023-01-04] MEDS: PRENATAL VITAMINS W/ FOLIC ACID TABLET (FP) PO SCH (09:50)
[2023-01-04] MEDS: ALBUTEROL SO4 HFA INHALER IH PRN (09:51)
[2023-01-04] MEDS: THIAMINE HCL 100 MG TABLET (FP) PO SCH (21:22)
[2023-01-04] MEDS: SUVOREXANT 15 MG TABLET PO PRN (21:22)
[2023-01-05] MEDS: hydrOXYzine PAMOATE 25 MG CAPSULE (FP) PO PRN ×2 (06:20→21:23)
[2023-01-05] MEDS: methaDONE HCL 40 MG DISPERSABLE TABLET PO SCH (06:21)
[2023-01-05] MEDS: NAPROXEN 500 MG TABLET PO PRN ×2 (06:21→21:23)
[2023-01-05] MEDS: PRENATAL VITAMINS W/ FOLIC ACID TABLET (FP) PO SCH (09:49)
[2023-01-05] MEDS: NIC7 TD SCH (09:49)
[2023-01-05] MEDS: ALBUTEROL SO4 HFA INHALER IH PRN (09:51)
[2023-01-05] MEDS: THIAMINE HCL 100 MG TABLET (FP) PO SCH (21:22)
[2023-01-05] MEDS: SUVOREXANT 15 MG TABLET PO PRN (21:23)
[2023-01-06] MEDS: methaDONE HCL 40 MG DISPERSABLE TABLET PO SCH (06:18)
[2023-01-06] MEDS: hydrOXYzine PAMOATE 25 MG CAPSULE (FP) PO PRN ×2 (06:20→21:30)
[2023-01-06] MEDS: NAPROXEN 500 MG TABLET PO PRN ×2 (06:20→21:30)
[2023-01-06] MEDS: PRENATAL VITAMINS W/ FOLIC ACID TABLET (FP) PO SCH (09:40)
[2023-01-06] MEDS: NIC7 TD SCH (09:41)
[2023-01-06] MEDS ORDERED: COLLOIDAL OATMEAL 1 BAR EACH TP PRN (11:59)
[2023-01-06] MEDS: SUVOREXANT 15 MG TABLET PO PRN (21:30)
[2023-01-06] MEDS: THIAMINE HCL 100 MG TABLET (FP) PO SCH (21:30)
[2023-01-07] MEDS ORDERED: methaDONE HCL 40 MG DISPERSABLE TABLET PO SCH (06:00)
[2023-01-07] MEDS: NAPROXEN 500 MG TABLET PO PRN ×2 (06:47→21:56)
[2023-01-07] MEDS: hydrOXYzine PAMOATE 25 MG CAPSULE (FP) PO PRN ×2 (06:47→21:56)
[2023-01-07] MEDS: methaDONE 80 MG, methaDONE 10 MG PO SCH (06:47)
[2023-01-07] MEDS: PRENATAL VITAMINS W/ FOLIC ACID TABLET (FP) PO SCH (10:01)
[2023-01-07] MEDS: ALBUTEROL SO4 HFA INHALER IH PRN (10:01)
[2023-01-07] MEDS: NIC7 TD SCH (10:01)
[2023-01-07] MEDS: SUVOREXANT 15 MG TABLET PO PRN (21:55)
[2023-01-07] MEDS: THIAMINE HCL 100 MG TABLET (FP) PO SCH (21:55)
[2023-01-08] MEDS: NAPROXEN 500 MG TABLET PO PRN ×2 (06:28→21:36)
[2023-01-08] MEDS: methaDONE 80 MG, methaDONE 10 MG PO SCH (06:28)
[2023-01-08] MEDS: hydrOXYzine PAMOATE 25 MG CAPSULE (FP) PO PRN ×2 (06:28→21:37)
[2023-01-08] MEDS: PRENATAL VITAMINS W/ FOLIC ACID TABLET (FP) PO SCH (10:01)
[2023-01-08] MEDS: NIC7 TD SCH (10:01)
[2023-01-08] MEDS: THIAMINE HCL 100 MG TABLET (FP) PO SCH (21:35)
[2023-01-08] MEDS: SUVOREXANT 15 MG TABLET PO PRN (21:37)
[2023-01-09] MEDS: methaDONE 80 MG, methaDONE 10 MG PO SCH (06:10)
[2023-01-09] MEDS: hydrOXYzine PAMOATE 25 MG CAPSULE (FP) PO PRN ×2 (06:12→21:31)
[2023-01-09] MEDS: NAPROXEN 500 MG TABLET PO PRN ×2 (06:12→21:32)
[2023-01-09] MEDS: NIC7 TD SCH (09:47)
[2023-01-09] MEDS: PRENATAL VITAMINS W/ FOLIC ACID TABLET (FP) PO SCH (09:47)
[2023-01-09] MEDS: SUVOREXANT 15 MG TABLET PO PRN (21:31)
[2023-01-09] MEDS: THIAMINE HCL 100 MG TABLET (FP) PO SCH (21:31)
[2023-01-09] MEDS: ALBUTEROL SO4 HFA INHALER IH PRN (21:32)
[2023-01-10] MEDS: methaDONE 80 MG, methaDONE 10 MG PO SCH (06:23)
[2023-01-10] MEDS: hydrOXYzine PAMOATE 25 MG CAPSULE (FP) PO PRN ×2 (06:24→21:25)
[2023-01-10] MEDS: NAPROXEN 500 MG TABLET PO PRN ×2 (06:24→21:25)
[2023-01-10] MEDS: PRENATAL VITAMINS W/ FOLIC ACID TABLET (FP) PO SCH (10:13)
[2023-01-10] MEDS: NIC7 TD SCH (10:13)
[2023-01-10] MEDS: THIAMINE HCL 100 MG TABLET (FP) PO SCH (21:25)
[2023-01-10] MEDS: ALBUTEROL SO4 HFA INHALER IH PRN (21:26)
[2023-01-10] MEDS: SUVOREXANT 15 MG TABLET PO PRN (21:26)
[2023-01-11] MEDS: methaDONE 80 MG, methaDONE 10 MG PO SCH (06:14)
[2023-01-11] MEDS: hydrOXYzine PAMOATE 25 MG CAPSULE (FP) PO PRN ×2 (06:15→21:19)
[2023-01-11] MEDS: NAPROXEN 500 MG TABLET PO PRN ×2 (06:15→21:19)
[2023-01-11 07:15] VITALS: RESP 18
[2023-01-11] MEDS: NIC7 TD SCH (09:53)
[2023-01-11] MEDS: PRENATAL VITAMINS W/ FOLIC ACID TABLET (FP) PO SCH (09:53)
[2023-01-11] MEDS: SUVOREXANT 15 MG TABLET PO PRN (21:19)
[2023-01-11] MEDS: THIAMINE HCL 100 MG TABLET (FP) PO SCH (21:19)
[2023-01-11] MEDS: ALBUTEROL SO4 HFA INHALER IH PRN (21:20)
[2023-01-12] MEDS: hydrOXYzine PAMOATE 25 MG CAPSULE (FP) PO PRN ×2 (06:22→21:22)
[2023-01-12] MEDS: NAPROXEN 500 MG TABLET PO PRN ×2 (06:22→21:22)
[2023-01-12] MEDS: methaDONE 80 MG, methaDONE 10 MG PO SCH (06:22)
[2023-01-12] MEDS: NIC7 TD SCH (10:02)
[2023-01-12] MEDS: PRENATAL VITAMINS W/ FOLIC ACID TABLET (FP) PO SCH (10:02)
[2023-01-12] MEDS: SUVOREXANT 15 MG TABLET PO PRN (21:22)
[2023-01-12] MEDS: THIAMINE HCL 100 MG TABLET (FP) PO SCH (21:22)
[2023-01-13] MEDS: methaDONE 80 MG, methaDONE 10 MG PO SCH (06:33)
[2023-01-13] MEDS: hydrOXYzine PAMOATE 25 MG CAPSULE (FP) PO PRN (06:36)
[2023-01-13 07:01] VITALS: BP 116/81; PULSE 71; TEMP 97.8
[2023-01-13] MEDS: NIC7 TD SCH (09:10)
[2023-01-13] MEDS: NAPROXEN 500 MG TABLET PO PRN (09:10)
[2023-01-13] MEDS: ALBUTEROL SO4 HFA INHALER IH PRN (09:10)
[2023-01-13] MEDS: PRENATAL VITAMINS W/ FOLIC ACID TABLET (FP) PO SCH (09:10)
== END 2023-01-13 09:16 | disposition home or self-care (01) | DRG 772 ==
LOC: YASAS 13:42 → Y3W 19:02
PROVIDERS: ADMIT Allergy & Immunology; ATTEND Psychiatry & Neurology Pain Medicine
PROC: HZ2ZZZZ Detoxification Services for Substance Abuse Treatment (ICD-10-PCS; 2022-12-17)
PROC: HZ42ZZZ Group Counseling for Substance Abuse Treatment, Cognitive-Behavioral (ICD-10-PCS; principal; 2022-12-30)
DX: F11.20 Opioid dependence, uncomplicated (principal); F14.20 Cocaine dependence, uncomplicated; F17.210 Nicotine dependence, cigarettes, uncomplicated; F19.24 Other psychoactive substance dependence with psychoactive substance-induced mood disorder; G47.00 Insomnia, unspecified; J45.909 Unspecified asthma, uncomplicated; M17.11 Unilateral primary osteoarthritis, right knee; Z56.0 Unemployment, unspecified; Z59.00 Homelessness unspecified
CPT/HCPCS: 36415; 80053; 81003; 85027; 86780; 86803; 87811; C9803-CS; U0003; U0005